=== PATIENT | male | born 1950 | race Caucasian/White ===

== ENCOUNTER 2017-03-13 14:16 | Emergency (ER) | payer OTHER ==
[~2017-03-13] VITALS: Ht 170.2 cm; Wt 72.6 kg
[2017-03-13] MEDS ORDERED: ESSENTIAL DAIL1 EACH PO (14:47)
[2017-03-13] MEDS ORDERED: FLOMAX0.4 MG PO (14:47)
[2017-03-13] MEDS ORDERED: ASPIR 8181 MG PO (14:47)
[2017-03-13 14:55] LABS: URINE BILIRUBIN NEGATIVE (Negative); URINE BLOOD 1+ (Negative); URINE COLOR DARK YELLOW; URINE GLUCOSE-RANDOM* NEGATIVE (Negative); URINE KETONES NEGATIVE (Negative); URINE NITRITE POSITIVE (Negative); URINE PROTEIN (DIPSTICK) TRACE (Negative); URINE SPECIFIC GRAVITY 1.025 (1.003-1.035)
[2017-03-13 15:04] LABS: BACTERIA >30 Many /HPF (None Seen); CRYSTALS None Seen /LPF (None Seen); HYALINE CASTS 0-3 Few /LPF (None Seen); SQUAMOUS 0-3 Few /LPF (0-3); URINE RBC 0-2 Rare /HPF (0-2); WBC CLUMPS Few (None Seen)
[2017-03-13 15:42] LABS: MCH 30.2 pg (26.0-34.0); MCHC 34.1 g/dL (28.0-37.0); MCV 88.5 fL (80.0-100.0); PLATELET COUNT 139 thou/uL (150-400); RBC 4.97 mil/uL (4.50-6.00); RDW 15.2 % (10.5-14.5); WBC 12.7 thou/uL (4.0-11.0)
[2017-03-13 15:51] LABS: CREATININE 0.9 mg/dL (0.7-1.3); POTASSIUM 4.3 mmol/L (3.5-5.1)
[2017-03-13 15:57] LABS: MANUAL DIFF YES
[2017-03-13] MEDS ORDERED: CIPRO500 MG PO (16:06)
[2017-03-13 16:18] LABS: ABSOLUTE NEUTROPHILS 11.6 thou/uL (1.4-8.2); PLATELET ESTIMATE NORMAL; TOTAL CELL COUNT 100
[2017-03-13 16:50] VITALS: BP 133/79
== END 2017-03-13 16:08 | disposition home or self-care (01) ==
LOC: ER 14:16
PROVIDERS: Nurse Practitioner Family
DX: R33.9 Retention of urine, unspecified (principal); E87.1 Hypo-osmolality and hyponatremia; N39.0 Urinary tract infection, site not specified; F10.99 Alcohol use, unspecified with unspecified alcohol-induced disorder; Z87.891 Personal history of nicotine dependence

== ENCOUNTER 2017-03-14 15:08 | Emergency (ER) | payer OTHER ==
[~2017-03-14] VITALS: Ht 177.8 cm; Wt 72.6 kg
[~2017-03-14 15:08] MED LIST: ASPIR 8181 MG PO; CIPRO500 MG PO; ESSENTIAL DAIL1 EACH PO; FLOMAX0.4 MG PO
[2017-03-14 16:26] VITALS: BP 123/80
== END 2017-03-14 15:39 | disposition home or self-care (01) ==
LOC: ER 15:08
DX: T83.098A Other mechanical complication of other urinary catheter, initial encounter (principal); F10.99 Alcohol use, unspecified with unspecified alcohol-induced disorder; Z87.891 Personal history of nicotine dependence; Y84.8 Other medical procedures as the cause of abnormal reaction of the patient, or of later complication, without mention of misadventure at the time of the procedure; Y92.89 Other specified places as the place of occurrence of the external cause

== ENCOUNTER 2017-03-17 21:44 | Emergency (ER) | payer OTHER ==
[~2017-03-17] VITALS: Ht 177.8 cm; Wt 72.6 kg
[2017-03-17 23:49] VITALS: BP 164/84
== END 2017-03-17 23:51 | disposition home or self-care (01) ==
LOC: ER 21:44
DX: N47.2 Paraphimosis (principal); N39.0 Urinary tract infection, site not specified; Z87.891 Personal history of nicotine dependence; F10.99 Alcohol use, unspecified with unspecified alcohol-induced disorder